=== PATIENT | male | born 1950 | race Asian ===

== ENCOUNTER 2021-12-15 10:39 | Day surgery (SDC) | payer OTHER, SELFPAY ==
[~2021-12-15] VITALS: Ht 160 cm; Wt 72.6 kg
[2021-12-15 11:23] LABS: BASOPHILS % (AUTO) 0.5 % (0.0-2.0); EOSINOPHILS # (AUTO) 0.1 K/uL (0-0.4); EOSINOPHILS % (AUTO) 2.1 % (0.0-4.0); HEMATOCRIT 42.5 % (36-52); HEMOGLOBIN 14.7 g/dL (12.0-18.0); LYMPHOCYTES # (AUTO) 1.2 K/uL (2.0-11.5); LYMPHOCYTES % (AUTO) 17.8 % (20.5-51.1); MEAN CORPUSCULAR HEMOGLOBIN 32 pg (27-31); MEAN CORPUSCULAR HGB CONC 35 g/dL (33-37); MEAN CORPUSCULAR VOLUME 92.4 fL (80-94); MONOCYTES # (AUTO) 0.5 K/uL (0.8-1.0); MONOCYTES % (AUTO) 6.5 % (1.7-9.3); NEUTROPHILS # (AUTO) 5.1 K/uL (1.8-7.7); NEUTROPHILS % (AUTO) 73.1 % (42.2-75.2); PLATELET COUNT (AUTO) 338 K/uL (140-450); RED CELL DISTRIBUTION WIDTH 13.6 % (11.6-13.7)
[2021-12-15] MEDS ORDERED: fentaNYL citrate 0.05 MG/ML VIAL ONE (11:53)
[2021-12-15] MEDS ORDERED: LIDOCAINE/EPI 2% 1:100000 20 ML VIAL INJ ONE (11:53)
[2021-12-15] MEDS ORDERED: LIDOCAINE MPF 1% 0 ML ONE (11:55)
[2021-12-15] MEDS ORDERED: LIDOCAINE MPF 2% 100 MG/5 ML VIAL INJ ONE ×2 (12:02→12:04)
[2021-12-15 12:41] LABS: PROTHROMBIN TIME 9.3 secs (10.8-13.4)
[2021-12-15] MEDS ORDERED: fentaNYL citrate 0.05 MG/ML VIAL IVP ONE (14:25)
== END 2021-12-15 14:25 | disposition home or self-care (01) ==
LOC: MDS 10:39 → MMU 10:40 → MDS 14:25
PROVIDERS: ATTEND Internal Medicine Gastroenterology
DX: K76.0 Fatty (change of) liver, not elsewhere classified (principal); Z20.822 Contact with and (suspected) exposure to COVID-19
CPT/HCPCS: 36415; 47000; 76942; 85025; 85610; 85730; 87426; J2001; J3010; J7030; Q0092